=== PATIENT | female | born 1990 | race Caucasian/White ===

== ENCOUNTER 2017-09-15 08:40 | Emergency (ER) | payer SELFPAY ==
[~2017-09-15] VITALS: Ht 160 cm; Wt 64.0 kg
[~2017-09-15 08:40] MED LIST: AMPI500C63 PO; PRED20 PO
[2017-09-15 08:52] VITALS: BP 125/57; PULSE 78; RESP 16; TEMP 97.7; O2SAT 98
--- NOTE | 2017-09-15 09:21 | PD ---
HPI Chief Complaint: ENT Complaint Time Seen by Provider: 09:05 Travel History International Travel<30 days: No Contact w/Intl Traveler<30days: No Traveled to known affect area: No History of Present Illness HPI 26-year-old female with PMH of lupus presents to the ED for evaluation of 3 day history of sinus congestion, clear rhinorrhea, productive cough, nausea. She denies fevers, chills, vomiting. Denies sick contacts. Did not receive this years flu vaccine. She is a rare cigarette smoker. Also complains of achy pain in the joints of her hands and feet "for at least a month." She states this is similar to previous lupus flare. She states that she is unable to see her primary care provider for "at least 3 weeks." Denies risk of . Treatment attempted at home. PFSH Past Medical History Autoimmune Disease: Yes (SLE) Anxiety: Yes Depression: No Cancer: No Cardiovascular Problems: No Diminished Hearing: No Endocrine: No Gastrointestinal Disorders: No Genitourinary: No Implanted Vascular Access Dvce: Yes Medical other: Yes (LUPUS) Musculoskeletal: No Neurologic: No Psychiatric: Yes Reproductive: No Respiratory: No Tetanus Vaccination: Unknown ?: Not LMP: MIRENA : 1 Para: 1 Miscarriage: 0 : 0 Past Surgical History Body Medical Devices: PT HAS MICRODERMAL PIERCINGS IN HER ABDOMEN AND SHE HAS A BELLY RING Other Surgery: No Social History Alcohol Use: Yes Tobacco Use: No Substance Use: No Allergies-Medications (Allergen,Severity, Reaction): Coded Allergies: No Known Allergies (Unverified Adverse Reaction, Unknown, 09/15/17) Reported Meds & Prescriptions Reported Meds & Active Scripts Active Tessalon Perles (Benzonatate) 100 Mg Cap 200 Mg PO TID PRN Roya-D 24 Hour Allergy (Fexofenadine-Pseudoephedrine ER 24 HR) 180-240 Geraldo 1 Tab PO DAILY Fluticasone Nasal [place] 50 Mcg/Act Naspr 100 Mcg EACH NARE BID 14 Days 50 mcg/spray Prednisone (21) 10 mg tab Dose Pack (Prednisone) 10 Mg Pack 10 Mg PO DIRECTED Review of Systems Except as stated in HPI: all other systems reviewed are Neg Physical Exam Narrative GENERAL: Well-nourished, well-developed female in no acute distress. SKIN: Warm and dry. HEAD: Normocephalic. Atraumatic. EYES: No scleral icterus. No injection or drainage. PERRLA. EOMI. ENT: Pearly alicea tympanic membranes bilaterally. Nasal mucosa is moist, boggy. Oropharynx mild posterior erythema. No edema or exudate. NECK: Supple, trachea midline. No JVD or lymphadenopathy. CARDIOVASCULAR: Regular rate and rhythm without murmurs, gallops, or rubs. No carotid bruits. 2+ DP and radial pulses bilaterally. RESPIRATORY: Breath sounds clear and equal bilaterally. No accessory muscle use. GASTROINTESTINAL: Abdomen soft, non-tender, nondistended. + Bowel sounds MUSCULOSKELETAL: No cyanosis, or edema. Full, active range of motion, strength 5/5 and joints of the bilateral upper and lower extremities. Neurovascularly intact. BACK: Nontender without obvious deformity. No CVA tenderness. Data Data Last Documented VS Vital Signs Date Time Temp Pulse Resp B/P (MAP) Pulse Ox O2 Delivery O2 Flow Rate FiO2 09/15/17 08:52 97.7 78 16 125/57 (79) 98 Orders Orders Ed Discharge Order (09/15/17 09:23) MDM Medical Decision Making Medical Screen Exam Complete: Yes Emergency Medical Condition: Yes Differential Diagnosis Viral syndrome versus allergic rhinitis versus upper airway cough syndrome versus pharyngitis versus strep pharyngitis versus lupus flare versus other Narrative Course 26-year-old female with PMH of lupus presents to the ED for evaluation of 3 day history of sinus congestion, clear rhinorrhea, productive cough, nausea. Also complains of achy pain in the joints of her hands and feet "for at least a month." She states this is similar to previous lupus flare. She states that she is unable to see her primary care provider for "at least 3 weeks." Denies risk of . Vitals reviewed. On exam this is a nontoxic-appearing white female in no acute distress. ENT exam reveals boggy nasal mucosa with mild posterior oropharyngeal erythema and bilateral serous tympanic effusions. Exam is otherwise unremarkable. This is upper airway cough syndrome. Patient is prescribed daily antihistamine/decongestant, intranasal steroids, Tessalon Perles. She is provided a Medrol Dosepak to treat lupus flare. She is instructed to follow-up with her primary care provider. She is stable and discharged home. Diagnosis Primary Impression: Lupus arthritis Additional Impression: Upper airway cough syndrome Referrals: Primary Care Physician Patient Instructions: General Instructions, Lupus Erythematosus (DC), Postnasal Drip (DC) Additional Instructions: Rest, hydrate. Take medications as they are prescribed. Follow-up with her primary care provider. Return to the ED for any urgent or emergent medical condition. Med/Other Pt SpecificInfo: Prescription(s) given Scripts Benzonatate (Tessalon Perles) 100 Mg Cap 200 MG PO TID Y for COUGH, #15 CAP 0 Refills Prov: Amalia Guzman MD 09/15/17 Fexofenadine-Pseudoephedrine ER 24 HR (Roya-D 24 Hour Allergy) 180-240 Geraldo 1 TAB PO DAILY for Allergy Management, #30 TAB 0 Refills Prov: Amalia Guzman MD 09/15/17 Fluticasone Nasal [place] (Fluticasone Nasal [place]) 50 Mcg/Act Naspr 100 MCG EACH NARE BID for Allergy Management for 14 Days, #1 BOTTLE 0 Refills 50 mcg/spray Prov: Amalia Guzman MD 09/15/17 Prednisone (21) 10 mg tab Dose Pack (Prednisone (21) 10 mg tab Dose Pack) 10 Mg Pack 10 MG PO DIRECTED for Inflammation, #1 DSPK 0 Refills Prov: Amalia Guzman MD 09/15/17 Disposition: 01 DISCHARGE HOME Condition: Stable Kimberly Mccarthy Sep 15, 2017 09:21
[2017-09-15] MEDS ORDERED: FLUT50SP EACH NARE (09:23)
[2017-09-15] MEDS ORDERED: FEXO1TAB97 PO (09:23)
[2017-09-15] MEDS ORDERED: PRED10PA PO (09:23)
[2017-09-15] MEDS ORDERED: BENZ100 PO (09:23)
== END 2017-09-15 09:44 | disposition home or self-care (01) ==
LOC: PHED 08:40
DX: M13.80 Other specified arthritis, unspecified site (principal); R09.82 Postnasal drip; R05 Cough; R11.0 Nausea; M32.9 Systemic lupus erythematosus, unspecified; Z86.59 Personal history of other mental and behavioral disorders
CPT/HCPCS: 99283